=== PATIENT | female | born 1985 | race Caucasian/White ===

== ENCOUNTER → 2017-09-12 | Outpatient (CLI) | payer OTHER ==
--- NOTE | 2017-09-13 07:50 | US ---
EXAMINATION TYPE: US pelvic complete DATE OF EXAM: 09/12/2017 COMPARISON: CLINICAL HISTORY: N92.0 Menorrhagia. Irregular menses TECHNIQUE: Transabdominal (TA) Date of LMP: 08/28/2017 EXAM MEASUREMENTS: Uterus: 8.7 x 5.2 x 4.0 cm Endometrial Stripe: 0.8 cm Right Ovary: 3.6 x 1.5 x 1.7 cm Left Ovary: 3.7 x 1.9 x 2.1 cm 1. Uterus: Anteverted Slightly heterogenous 2. Endometrium: Mildly heterogeneous, small amount of fluid may be present 3. Right Ovary: follicles seen 4. Left Ovary: follicles seen Color doppler imaging shows good vascular flow within the ovaries; there is no evidence for ovarian torsion. 5. Bilateral Adnexa: Free fluid seen in right adnexa 6. Posterior cul-de-sac: Free fluid seen IMPRESSION: Fluid in the pelvis is likely physiologic. Follicles noted bilaterally associated with th e ovaries. Small amount of fluid may be present along the endometrium, follow-up as indicated.
== END | disposition home or self-care (01) ==
LOC: RADUSWWP 16:04
PROVIDERS: ATTEND Obstetrics & Gynecology
DX: N83.8 Other noninflammatory disorders of ovary, fallopian tube and broad ligament (principal); N92.0 Excessive and frequent menstruation with regular cycle
CPT/HCPCS: 76856

== ENCOUNTER → 2017-10-01 | Outpatient (CLI) | payer OTHER ==
[2017-10-01 12:48] LABS: Basophils # (A) 0.1 k/uL (0-0.2); Basophils % (A) 1 %; Eosinophils # (A) 0.1 k/uL (0-0.7); Eosinophils % (A) 1 %; HCT 40.5 % (34.0-46.0); Lymphocytes # (A) 2.5 k/uL (1.0-4.8); Lymphocytes % (A) 27 %; MCH 32.8 pg (25.0-35.0); MCHC 32.1 g/dL (31.0-37.0); MCV 102.2 fL (80.0-100.0); Mean Platelet Volume 7.4; Monocytes # (A) 0.5 k/uL (0-1.0); Monocytes % (A) 5 %; Neutrophils # (A) 6.1 k/uL (1.3-7.7); Neutrophils % (A) 65 %; Platelet Count 236 k/uL (150-450); RBC 3.96 m/uL (3.80-5.40); WBC 9.3 k/uL (3.8-10.6)
== END | disposition home or self-care (01) ==
LOC: LABWHC1 11:56
PROVIDERS: ATTEND Obstetrics & Gynecology
DX: Z01.812 Encounter for preprocedural laboratory examination (principal)
CPT/HCPCS: 36415; 85025

== ENCOUNTER 2017-10-07 06:21 | Day surgery (SDC) | payer OTHER ==
--- NOTE | 2017-10-06 14:09 | P.HPOB ---
History of Present Illness H&P Date: 10/06/17 Chief Complaint: Menorrhagia with regular cycle, dysmenorrhea, family-planning This is a 32-year-old female 3 para 3 who presents for dilation and curettage with hysteroscopy and NovaSure endometrial ablation along with laparoscopic bilateral tubal ligation. She complains of painful menses along with heavy menses that last 7 days but 3 days she has very heavy clots to where she has to change every hour. In addition she would like permanent sterilization. Pelvic ultrasound showed uterus measuring 8.7 x 5.2 x 4.0 cm with an endometrial stripe thickness of 0.8 cm. Both ovaries had small follicles but normal size. Obstetrical history: . History of 3 vaginal deliveries. Gynecologic history: No history of sexually transmitted diseases. Social history: She is . She currently works as a chronic care nurse. Review of Systems Constitutional: Reports fatigue Eyes: denies blurred vision, denies pain Ears, nose, mouth and throat: Denies sore throat Cardiovascular: Denies chest pain, Denies shortness of breath Respiratory: Denies cough Gastrointestinal: Reports bloating Genitourinary: Reports dysmenorrhea, Reports menorrhagia, Reports stress incontinence, Reports urinary frequency Menstruation: Reports period heavy Musculoskeletal: Reports low back pain Integumentary: Denies pruritus, Denies rash Neurological: Reports headaches, Denies numbness, Denies weakness Psychiatric: Reports change in libido, Reports irritability Endocrine: Denies weight change Past Medical History Additional Past Medical History / Comment(s): CURRENT: SEVERE MENSTRUAL CRAMPS AND BLEEDING. Degenerative disc disease History of Any Multi-Drug Resistant Organisms: None Reported Additional Past Surgical History / Comment(s): D&C; laser vein surgery Past Anesthesia/Blood Transfusion Reactions: No Reported Reaction, Motion Sickness Past Psychological History: No Psychological Hx Reported Smoking Status: Current every day smoker Past Alcohol Use History: None Reported Additional Past Alcohol Use History / Comment(s): SMOKES, .5PPD, 15 YRS. Past Drug Use History: None Reported - Past Family History Father Family Medical History: No Reported History Mother Additional Family Medical History / Comment(s): Endometriosis Medications and Allergies Home Medications Medication Instructions Recorded Confirmed Type Ibuprofen [Motrin] 400 mg PO Q6HR PRN 03/08/16 10/03/17 History Multivitamins, Thera [Multivitamin 1 tab PO DAILY 10/03/17 10/03/17 History (formulary)] Allergies Allergy/AdvReac Type Severity Reaction Status Date / Time Penicillins Allergy Rash/Hives Verified 10/03/17 14:53 Exam Osteopathic Statement: *. No significant issues noted on an osteopathic structural exam other than those noted in the History and Physical/Consult. Gen.: Well-developed well-nourished female with no acute distress HEENT: Within normal limits Lungs: Clear to auscultation bilaterally Heart: Regular rate and rhythm Abdomen: Soft, nontender Pelvic exam: Uterus is mildly tender, anteverted, with no adnexal masses or tenderness noted. Extremities: Negative Homans Assessment and Plan (1) Menorrhagia with regular cycle Status: Acute Code(s): N92.0 - EXCESSIVE AND FREQUENT MENSTRUATION WITH REGULAR CYCLE SNOMED Code(s): 385255087 (2) Dysmenorrhea Status: Acute Code(s): N94.6 - DYSMENORRHEA, UNSPECIFIED SNOMED Code(s): 176233676 (3) Family planning Status: Acute Code(s): Z30.09 - ENCOUNTER FOR OT GENERAL CNSL AND ADVICE ON CONTRACEPTION SNOMED Code(s): 112938430 Plan: Proceed with dilation and curettage with hysteroscopy and NovaSure endometrial ablation along with laparoscopic bilateral tubal ligation via fulguration. I have discussed the risks, benefits, and alternative therapies for the above- mentioned procedure and for both sedation/anesthesia as well as necessary blood products administration, if indicated, as they pertain to this patient. The patient has indicated her understanding and acceptance of the risks and procedures discussed.
[~2017-10-07 06:21] MED LIST: DEXAMETHASONE SOD PHOSPHATE 10 MG/ML 1 ML VIAL IV ONE; LACTATED RINGERS 1,000 ML IV SCH; LIDOCAINE 1% 20 ML VIAL (10MG/ML) FOR IV START INTRADERMA PRN; ONDANSETRON 4 MG/2 ML VIAL IVP ONE; Pre Op ABX Message 1 EACH MISC MISCELLANE ONE; SCOPOLAMINE 1.5MG/72HR PATCH TRANSDERM ONE
[2017-10-07] MEDS ORDERED: SUCCINYLCHOLINE CHLORIDE 100 MG/5 ML SYR IV ONE (07:33)
[2017-10-07] MEDS ORDERED: fentaNYL (PF) 50 MCG/ML 2 ML AMP ONE (07:33)
[2017-10-07] MEDS ORDERED: LIDOCAINE 1% INJ 10MG/ML (20 ML MDV) ONE (07:33)
[2017-10-07] MEDS ORDERED: GLYCOPYRROLATE 0.2 MG/ML 2 ML VIAL ONE (07:33)
[2017-10-07] MEDS ORDERED: MEPERIDINE 50 MG/ML SYRINGE ONE (07:33)
[2017-10-07] MEDS ORDERED: MIDAZOLAM 2 MG/2 ML VIAL ONE (07:33)
[2017-10-07] MEDS ORDERED: ROCURONIUM BROMIDE 10 MG/ML 10 ML VIAL IV ONE (07:33)
[2017-10-07] MEDS ORDERED: KETOROLAC 30 MG/ML 1 ML VIAL ONE (07:33)
[2017-10-07] MEDS ORDERED: NEOSTIGMINE 1 MG/ML 10 ML VIAL ONE (07:33)
[2017-10-07] MEDS ORDERED: PROPOFOL 10 MG/ML 20 ML VIAL IV ONE (07:33)
[2017-10-07] MEDS ORDERED: BUPIVACAINE (PF) 0.25% 30 ML VIAL SQ ONE ×2 (08:14)
--- NOTE | 2017-10-07 08:27 | P.OP ---
Date of Procedure: 10/07/17 Preoperative Diagnosis: 1. Menorrhagia with regular cycle 2. Dysmenorrhea 3. Family planning Postoperative Diagnosis: Same Procedure(s) Performed: Dilation and curettage with hysteroscopy and NovaSure endometrial ablation Laparoscopic bilateral tubal ligation via fulguration Anesthesia: AMY Surgeon: Anupama Gan Estimated Blood Loss (ml): 10 Pathology: other (Endometrial curettings) Condition: stable Disposition: same day Indications for Procedure: This is a 32-year-old female 3 para 3 who presents for dilation and curettage with hysteroscopy and NovaSure endometrial ablation along with laparoscopic bilateral tubal ligation. She complains of painful menses along with heavy menses that last 7 days but 3 days she has very heavy clots to where she has to change every hour. In addition she would like permanent sterilization. Pelvic ultrasound showed uterus measuring 8.7 x 5.2 x 4.0 cm with an endometrial stripe thickness of 0.8 cm. Both ovaries had small follicles but normal size. Operative Findings: Cervix is sounded to 3 cm and uterus is sounded to 10 cm. Upon hysteroscopy both tubal ostia are visualized. No specific abnormalities were noted in the uterine cavity. A moderate amount of endometrial curettings were obtained. Normal uterus tubes and ovaries are noted. Uterus is anteverted. Small follicle cysts were noted on both ovaries. Description of Procedure: The patient is taken to the operating room. She is placed in the dorsal lithotomy position after general anesthesia was given. She is prepped and draped in the normal sterile fashion. Bladder is drained with a catheter and then removed. Pelvic exam is performed under anesthesia. Uterus is found to be anteverted with no adnexal masses. She is placed in slight Trendelenburg position. A right angle retractor is used to visualize the cervix. The anterior lip of the cervix is grasped with a single-tooth tenaculum. Cervix is sounded to 3 cm. Uterus is sounded to 10 cm. Cervix is gently dilated with Benavides dilators until a hysteroscope could be passed. Hysteroscopy is performed using normal saline. The above noted findings are noted. Next a polyp forceps is introduced. A minimal amount of tissue was obtained. Next medium-sized size sharp curette was placed. A moderate amount of endometrial curettings were obtained. Next NovaSure array was inserted into the endometrial cavity. Length was set at 6.5 cm and width was determined to be 4 cm. Next cavity assessment was completed and passed on the first try. Next NovaSure array was fired at 143 W for 73 seconds. Next the array was removed, inspected and then discarded. Next the hysteroscope was reinserted. Uniform charring was noted. Pictures were taken. Hysteroscope was removed. A kroner uterine manipulator was then inserted through the cervix and the balloon was inflated. Single- tooth tenaculum was removed from the anterior lip of the cervix. Minimal bleeding was noted. All other instruments removed from the vagina. Next attention was turned to the abdomen. The infraumbilical fold was grasped in transverse fashion with 2 Allis clamps. A small transverse incision was made with a scalpel. A hemostat was used to carry the incision down to the underlying layer of fascia. A towel clip was placed above the umbilicus for retraction. An 11 mm disposable bladeless trocar was then inserted into the peritoneal cavity under direct visualization. Once inside, pneumoperitoneum was achieved with CO2 gas. The insert was removed and the camera was placed. Intraperitoneal placement was confirmed. No bleeding was noted. Next the patient was placed in Trendelenburg position. A small stab incision was made suprapubically and a 5 mm disposable bladeless trocar was inserted into the peritoneal cavity under direct visualization. Once inside pelvic contents were inspected. Next a bipolar Kleppinger instrument was placed through the inferior trocar and the midportion of each tube was brought away from other structures and completely fulgurated on approximate 2-3 cm segment of each tube. Excellent hemostasis was noted. Pictures were taken. Pneumoperitoneum was released after the inferior trocar was removed under direct visualization. The upper trocar was then removed. The fascial incision was closed with 0 Vicryl suture in interrupted figure-of- eight stitch. The skin incisions were then closed with 4-0 Vicryl suture in a subcuticular fashion. The incision sites were then injected with quarter percent Marcaine. Approximately 6 mL were used. Next the kroner uterine manipulator was removed. Minimal bleeding was noted. All sponge and needle counts are correct. The patient is then taken to recovery room in stable condition.
[2017-10-07 08:43] VITALS: TEMP 97.5
[2017-10-07 08:52] VITALS: RESP 16
[2017-10-07] MEDS: HYDROmorphone 0.5 MG/0.5 ML SYRINGE IVP PRN ×3 (08:58→09:05)
[2017-10-07] MEDS ORDERED: LACTATED RINGERS 1,000 ML IV ONE ×2 (08:59)
[2017-10-07 09:49] VITALS: BP 105/66; PULSE 64
== END 2017-10-07 10:28 | disposition home or self-care (01) ==
LOC: OR 06:21
PROVIDERS: ATTEND Obstetrics & Gynecology
DX: Z30.2 Encounter for sterilization (principal); N94.6 Dysmenorrhea, unspecified; N92.0 Excessive and frequent menstruation with regular cycle; N83.02 Follicular cyst of left ovary; F17.210 Nicotine dependence, cigarettes, uncomplicated; N83.01 Follicular cyst of right ovary; Z88.0 Allergy status to penicillin
CPT/HCPCS: 81025; 88305; 58563; 58670; J2250; J1100; J2710; J2175; J2405; J2001; J3010; J1885; J0330; J2704; J1170

== ENCOUNTER → 2018-11-10 | Outpatient (CLI) | payer OTHER ==
--- NOTE | 2018-11-11 03:58 | US ---
EXAMINATION TYPE: US pelvic complete DATE OF EXAM: 11/10/2018 COMPARISON: 09/12/2017 CLINICAL HISTORY: 33-year-old female R10.2 Pelvic pain. Generalized pelvic pain, hx of ablation x 1 y ear ago TECHNIQUE: Transabdominal sonographic images of the pelvis were acquired. Date of LMP: 11/07/2018, FINDINGS: EXAM MEASUREMENTS: Uterus: 8.5 x 5.0 x 3.4 cm Endometrial Stripe: 0.2 cm Right Ovary: 2.6 x 1.9 x 1.2 cm Left Ovary: 2.8 x 2.5 x 1.7 cm 1. Uterus: Anteverted. 2. Endometrium: wnl 3. Right Ovary: follicles seen 4. Left Ovary: Follicles seen 5. Bilateral Adnexa: wnl 6. Posterior cul-de-sac: no free fluid Cervix- wnl IMPRESSION: No specific abnormality of the pelvis on transabdominal scanning.
== END | disposition home or self-care (01) ==
LOC: RADUSWWP 14:43
PROVIDERS: ATTEND Obstetrics & Gynecology
DX: R10.2 Pelvic and perineal pain (principal)
CPT/HCPCS: 76856

== ENCOUNTER → 2021-05-26 | Outpatient (CLI) | payer OTHER ==
[2021-05-26 12:16] LABS: African American GFR (CKD) >90 (>60 ml/min/1.73 sqM); Anion Gap 6 mmol/L; Blood Urea Nitrogen 11 mg/dL (7-17); Carbon Dioxide 25 mmol/L (22-30); Chloride 108 mmol/L (98-107); Glucose 81 mg/dL (74-99); Non-African American GFR(CKD) >90 (>60 ml/min/1.73 sqM); Potassium 4.1 mmol/L (3.5-5.1); Sodium 139 mmol/L (137-145)
[2021-05-26 12:23] LABS: Basophils % (A) 0 %; Eosinophils # (A) 0.1 k/uL (0-0.7); Eosinophils % (A) 1 %; HCT 41.8 % (34.0-46.0); HGB 13.9 gm/dL (11.4-16.0); Lymphocytes # (A) 2.6 k/uL (1.0-4.8); Lymphocytes % (A) 29 %; MCH 33.6 pg (25.0-35.0); MCHC 33.3 g/dL (31.0-37.0); MCV 100.8 fL (80.0-100.0); Mean Platelet Volume 8.1; Monocytes # (A) 0.5 k/uL (0-1.0); Monocytes % (A) 5 %; Neutrophils # (A) 5.7 k/uL (1.3-7.7); Neutrophils % (A) 64 %; Platelet Count 251 k/uL (150-450); RBC 4.15 m/uL (3.80-5.40); RDW 13.1 % (11.5-15.5); WBC 9.1 k/uL (3.8-10.6)
== END | disposition home or self-care (01) ==
LOC: LABPAT 11:22
PROVIDERS: ATTEND Obstetrics & Gynecology
DX: Z01.812 Encounter for preprocedural laboratory examination (principal)
CPT/HCPCS: 80048; 85025; 86850; 86900; 86901

== ENCOUNTER 2021-06-05 05:53 | Day surgery (SDC) | payer OTHER ==
[2021-05-31 15:30] VITALS: BMI 23.3
--- NOTE | 2021-05-31 15:52 | P.HPOB ---
History of Present Illness H&P Date: 05/31/21 Chief Complaint: Dysmenorrhea Patient is a 35-year-old female with painful menses. She has had painful and irregular menses that has happened off and on for years. The symptoms have progressively worsened with abdominal cramping and significant discomfort limiting her ability to function as she would like to on a normal basis. 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 She is scheduled for a robotic hysterectomy with bilateral salpingectomy. Risks/benefits/alternatives to this procedure were reviewed with the patient in detail and all questions were answered for her prior to proceeding to the operating room. Pertinent surgical history is significant for tubal ligation and NovaSure. Risks did include but were not limited to bleeding and infection, damage to bladder or bowel, vascular injuries, nerve injuries, ureteral damage possible need for further surgery. Possible removal of ovaries and possible need for total abdominal hysterectomy. Past Medical History Past Medical History: GERD/Reflux Additional Past Medical History / Comment(s): Degenerative disc disease, pain with periods History of Any Multi-Drug Resistant Organisms: None Reported Past Surgical History: Uterine Ablation Additional Past Surgical History / Comment(s): D&C Past Anesthesia/Blood Transfusion Reactions: Motion Sickness Smoking Status: Current every day smoker - Past Family History Father Family Medical History: Deep Vein Thrombosis (DVT) Medications and Allergies Home Medications Medication Instructions Recorded Confirmed Type Multivitamins, Thera [Multivitamin 1 tab PO DAILY 10/03/17 05/31/21 History (formulary)] Acetaminophen [Tylenol Extra 500 mg PO DIRECTED PRN 05/31/21 05/31/21 History Strength] Allergies Allergy/AdvReac Type Severity Reaction Status Date / Time Penicillins Allergy Rash/Hives Verified 05/31/21 15:22 Exam Osteopathic Statement: *. No significant issues noted on an osteopathic structural exam other than those noted in the History and Physical/Consult. Intake and Output 05/31/21 05/31/21 05/31/21 06:59 14:59 22:59 Other: Weight 68.946 kg - OBG Physical Exam Breast: both: normal (no masses) Abdomen: bowel sounds normal, no diffuse tenderness, no bruit present, no guarding noted, no hepatomegaly, no splenomegaly, no mass Vulva: both: normal Vagina: normal moisture, no discharge Cervix: no lesion, no discharge Uterus: normal size, normal contour Adnexa: both: normal Anus/Rectum: normal perianal skin, no rectal mass, no hemorrhoids, heme negative
[~2021-06-05 05:53] MED LIST changes: -DEXAMETHASONE SOD PHOSPHATE 10 MG/ML 1 ML VIAL IV ONE; +DEXAMETHASONE SOD PHOSPHATE 4 MG/ML 1 ML VIAL IV ONE; -LIDOCAINE 1% 20 ML VIAL (10MG/ML) FOR IV START INTRADERMA PRN; -Pre Op ABX Message 1 EACH MISC MISCELLANE ONE; -SCOPOLAMINE 1.5MG/72HR PATCH TRANSDERM ONE
[2021-06-05] MEDS ORDERED: MIDAZOLAM 2 MG/2 ML VIAL IVP ONE (06:55)
[2021-06-05] MEDS ORDERED: fentaNYL (PF) 50 MCG/ML 2 ML AMP IVP ONE (06:55)
[2021-06-05] MEDS ORDERED: fentaNYL (PF) 50 MCG/ML 2 ML AMP ONE (07:31)
[2021-06-05] MEDS ORDERED: ROPIVACAINE 5 MG/ML 30 ML VIAL ONE (07:31)
[2021-06-05] MEDS ORDERED: NEOSTIGMINE 1 MG/ML 10 ML VIAL ONE (07:31)
[2021-06-05] MEDS ORDERED: GLYCOPYRROLATE 0.2 MG/ML 2 ML VIAL ONE (07:31)
[2021-06-05] MEDS ORDERED: PROPOFOL 10 MG/ML 20 ML VIAL IV ONE (07:31)
[2021-06-05] MEDS ORDERED: ROCURONIUM 10 MG/ML (5 ML VIAL) IV ONE (07:31)
[2021-06-05] MEDS ORDERED: HYDROmorphone (PF) 1 MG/ML ONE (07:31)
[2021-06-05] MEDS ORDERED: MIDAZOLAM 2 MG/2 ML VIAL ONE (07:31)
[2021-06-05] MEDS ORDERED: SODIUM CHLORIDE 0.9% (PF) 10 ML VIAL ONE (07:31)
[2021-06-05] MEDS ORDERED: LIDOCAINE 1% INJ 10MG/ML (20 ML MDV) ONE (07:31)
--- NOTE | 2021-06-05 07:45 | P.ANPRN ---
Procedure Note - Anesthesia - Nerve Block Performed Bilateral Erector Spinae Single Time Out Performed: Yes ([id number]) Date of Procedure: 06/05/21 Procedure Start Time: 06:55 Procedure Stop Time: 07:01 Location of Patient: PreOp Indication: Acute Post-Operative Pain, Requested by Surgeon Specifically requested for management of pain by DrBlake: German Miller Sedation Type: Sedate with meaningful contact maintained Preparation: Sterile Prep Position: Supine Catheter: None Needle Types: Pajunk Needle Gauge: 21 Ultrasound used to visualize needle placement: Yes Ultrasound used to observe medication spread: Yes Injectate: 0.5% Ropivacaine (see comment for volume) ((Ropi 0.5% 15cc + NACL PF 15cc) each side) Blood Aspirated: No Pain Paresthesia on Injection Noted: No Resistance on Injection: Normal Image Stored and Saved: Yes Events: Uneventful and Well Tolerated
[2021-06-05] MEDS ORDERED: BUPIVACAINE (PF) 0.25% 30 ML VIAL SQ ONE ×2 (08:20→08:39)
[2021-06-05] MEDS ORDERED: ONDANSETRON 4 MG/2 ML VIAL IVP PRN (08:46)
[2021-06-05] MEDS ORDERED: SIMETHICONE 80 MG CHEWABLE PO PRN (08:46)
[2021-06-05] MEDS ORDERED: HYDROcodone/APAP 5-325MG 1 EACH TAB PO PRN ×2 (08:48)
--- NOTE | 2021-06-05 08:54 | P.OP ---
Date of Procedure: 06/05/21 Preoperative Diagnosis: Dysmenorrhea Postoperative Diagnosis: Same Procedure(s) Performed: Robotic-assisted laps up hysterectomy with bilateral salpingectomy and diagnostic cystoscopy Anesthesia: AMY Surgeon: German Miller [employer] Boat Pilot #1: Janell Hansen Estimated Blood Loss (ml): 10 IV fluids (ml): 500 Urine output (ml): 50 Pathology: other (Uterus, cervix and fallopian tubes) Condition: stable Disposition: floor Operative Findings: Pathology is pending Description of Procedure: Patient was taken to the operating suite where general anesthetic found be adequate. She was prepped and draped in the normal sterile fashion placed in dorsal lithotomy position. Initially a weighted speculum was inserted in the vagina and anterior lip of cervix identified and grasped with single tooth tenaculum. Cervix then dilated and sounded to 8 cm. Cup sizes measured to 3 cm. Manipulator was then inserted without difficulty with sutures placed at 3 and 9 on the cervix to help with removal. Once this was completed incidents removed and a Engel cath was placed. Gloves were then changed and attention was turned to the abdominal portion procedure were 2 mL of quarter percent Marcaine was injected approximately 1 cm superior to the umbilicus. 2 lateral ports were then placed approximately 10 cm lateral to the umbilicus on the right and left side. Fourth port and sleeve was then inserted through a 1 cm incision between the left lateral and medial ports. Robot was then brought in and docked and once completely docked a [place] grasper placed in the one arm a Metzenbaum and the 2 arm. At this point we broke scrub and went to the console. Observations pelvis were noted with no gross pathology noted. Initially uterus was elevated and tipped to the right-hand side and the left fallopian tube was cauterized in through the mesosalpinx and removed. Once this was completed utero-ovarian ligament was identified cauterized and transected. Moving through the mesosalpinx around ligament tissues cauterized and transected. Anterior posterior leafs broad ligament were then developed and the vascularity through the left side of the uterus was cauterized and transected bladder flap. Bladder flap was then entered and using blunt dissection underneath with [place] grasper it was incised and extended across face uterus bladder was then bluntly dissected out of the operative field. The remaining uterine vascularity on that side was then cauterized. Uterus was then moved to the left side and in a similar fashion the right side of the uterus was developed with right fallopian tube also be excised. Once this was completed and excellent blanching the uterus was noted anterior colpotomy was made. The blue cup was then followed around the 360 using the Metzenbaum to incise this tissue. Once 360 degrees was completed, uterus is brought into the vagina to maintain pneumoperitoneum. Pedicles were evaluated and appeared hemostatic. Once hemostasis across the vaginal cuff was felt to be obtained instruments were exchanged for Thierry grasper and a make suture cut. Using to OB lock suture the vaginal cuff was then reapproximated in running fashion. Pelvis was then irrigated fluid was then removed. Sponge, lap, needle counts were all correct. Instruments were then removed and gas was allowed to expel from the abdomen with 5 deep breaths been provided during this process. Robot was undocked and removed from the field. At this point I did a diagnostic cystoscopy with excellent flow from both ureteral jets and Dr. Hansen close the incision subcuticularly with 4-0 Vicryl. Sponge, lap, needle counts were all correct 2. Patient was then taken to the recovery room in stable and satisfactory condition.
[2021-06-05] MEDS: HYDROmorphone 0.5 MG/0.5 ML SYRINGE IVP PRN ×2 (09:03→09:15)
[2021-06-05] MEDS: KETOROLAC 15 MG/ML 1 ML VIAL IVP PRN ×2 (13:49→20:37)
[2021-06-06 05:48] VITALS: RESP 16
[2021-06-06 08:15] VITALS: BP 89/50; PULSE 68; TEMP 98.2
--- NOTE | 2021-06-06 10:07 | P.DS ---
Providers Expected date of discharge: 06/06/21 Attending physician: German Miller Primary care physician: Roque Durham [facility] Course: Patient is doing very well post op day 1. She is involuting, voiding and tolerating her diet. She is passing flatus. Vital signs are stable and afebrile. Heart regular, lungs clear, extremities without pain. Abdomen is soft, bowel sounds are noted. Incisions are intact. We'll plan discharged home today. Prescription for Motrin and Fabens for to the pharmacy. All questions are answered for her prior to her discharge. She is stable for discharge this time. She'll follow up in 1 week. Discharge instructions thoroughly reviewed and all questions were answered for her prior to discharge. Patient Condition at Discharge: Good Plan - Discharge Summary Discharge Rx Participant: Yes New Discharge Prescriptions: New Ibuprofen [Motrin] 600 mg PO Q6HR PRN #30 tab PRN Reason: Pain HYDROcodone/APAP 5-325MG [Fabens 5-325] 1 tab PO Q4HR PRN #30 tab PRN Reason: Pain No Action Multivitamins, Thera [Multivitamin (formulary)] 1 tab PO DAILY Acetaminophen [Tylenol Extra Strength] 500 mg PO DIRECTED PRN PRN Reason: Pain Discharge Medication List Multivitamins, Thera [Multivitamin (formulary)] 1 tab PO DAILY 10/03/17 [History] Acetaminophen [Tylenol Extra Strength] 500 mg PO DIRECTED PRN 05/31/21 [History] HYDROcodone/APAP 5-325MG [Fabens 5-325] 1 tab PO Q4HR PRN #30 tab 06/06/21 [Rx] Ibuprofen [Motrin] 600 mg PO Q6HR PRN #30 tab 06/06/21 [Rx] Follow up Appointment(s)/Referral(s): German Miller DO [Doctor of Osteopathic Medicine] - 1 Week Activity/Diet/Wound Care/Special Instructions: Heavy lifting, limit stairs and driving, and pelvic rest. If any high temperatures, heavy bleeding, or severe pain call my office Discharge Disposition: HOME SELF-CARE
== END 2021-06-06 10:30 | disposition home or self-care (01) ==
LOC: OR 05:53 → 4FBP 08:52 → OR 06-06 10:30
PROVIDERS: ATTEND Obstetrics & Gynecology
DX: N94.6 Dysmenorrhea, unspecified (principal); K21.9 Gastro-esophageal reflux disease without esophagitis; Z98.890 Other specified postprocedural states; F17.200 Nicotine dependence, unspecified, uncomplicated; Z20.822 Contact with and (suspected) exposure to COVID-19; Z82.49 Family history of ischemic heart disease and other diseases of the circulatory system; Z88.0 Allergy status to penicillin
CPT/HCPCS: 58571; S2900; 64999; 81025; 87635; 88307

== ENCOUNTER → 2023-06-18 | Outpatient (CLI) | payer OTHER ==
--- NOTE | 2023-06-19 15:29 | MM ---
Reason for Exam: Screening (asymptomatic). Baseline mammogram. Patient History: Menarche at age 9. First Full-Term at age 25. Hysterectomy at age 35. Patient has history of breast feeding. Risk Values: Martha 5 year model risk: 0.6%. NCI Lifetime model risk: 12.2%. Prior Study Comparison: Patient's first Mammogram. Tissue Density: The breast tissue is extremely dense which could obscure a lesion on mammography. Findings: Analyzed By CAD. Heart appears symmetrical. No suspicious groups of microcalcifications, spiculated or lobular masses, architectural distortion or other secondary signs of malignancy are mammographically apparent. Overall Assessment: Negative, BI-RAD 1 Management: Screening Mammogram of both breasts in 1 year. A negative mammogram report should not preclude additional follow up of suspicious palpable abnormalities. Patient should continue monthly self breast exam. A clinical breast exam by your physician is recommended on an annual basis and results should be correlated with mammographic findings. Electronically signed and approved by: Tim Wallace D.O. Radiologis
== END | disposition home or self-care (01) ==
LOC: RADMAMWWP 07:41
PROVIDERS: ATTEND Obstetrics & Gynecology
DX: Z12.31 Encounter for screening mammogram for malignant neoplasm of breast (principal)
CPT/HCPCS: 77063; 77067